=== PATIENT | female | born 1980 | race Caucasian/White ===

== ENCOUNTER 2020-09-08 20:11 | Emergency (ER) | payer SELFPAY ==
[~2020-09-08] VITALS: Ht 157.5 cm; Wt 81.6 kg
[2020-09-08 20:15] VITALS: BP_SYST 154
[2020-09-08 20:55] VITALS: BP_SYST 138
== END 2020-09-08 20:55 | disposition left against medical advice (07) ==
LOC: SED 20:11
DX: F41.9 Anxiety disorder, unspecified (principal)
CPT/HCPCS: 99283